=== PATIENT | female | born 1985 | race Caucasian/White ===

== ENCOUNTER 2021-03-09 20:20 | Emergency (ER) | payer MEDICAID, SELFPAY ==
[2021-03-09 20:38] VITALS: BP 128/80; PULSE 66; RESP 16; TEMP 36.7; O2SAT 99; BMI 24.7
--- NOTE | 2021-03-09 22:09 | ED_ITS ---
HPI - Chest Pain General: Chief Complaint: Chest Pain Stated Complaint: CP/LEFT SIDED NUMBNESS Time Seen by Provider: 03/09/21 21:54 History of Present Illness: HPI narrative: 35-year-old female comes in with chest pain. She had an episode 3 days ago and states she also passed out at that time. Her states she was out about 3 minutes. She states she had a similar episode tonight about 7 PM. She did feel somewhat short of breath. She states she had [id number] in her hands and legs. She states she felt fluttering in her chest. She denies any pain or burning with urination. No diarrhea or constipation. No ear pain, runny nose or sore throat. No cough. No nausea or vomiting. She states that she has had a murmur when she has been . She states that it was normal 5 years ago MD complaint: chest pain Onset (ago): hour(s) (This occurred at 7 PM.) Timing of current episode: episodic Prior episodes: Yes (3 days ago) Onset: during rest Pain location: substernal Pain radiation: none (She states she did feel [id number] in her arms and legs.) Severity: moderate Quality: other Relieving factors: rest Exacerbating factors: nothing Associated symptoms: Reports dyspnea (With the chest pain episodes.), palpitations ( Fluttering ) and syncope (3 days ago she states she did pass out with similar episode); Deny abdominal pain, diaphoresis, fever(s), nausea or vomiting Treatment prior to arrival: none Risk Factors: Coronary artery disease risk factors: none Review of Systems Const: Denies: fever(s), chills, body aches, change in appetite, change in weight, fatigue, malaise, night sweats, diaphoresis, change in sleep pattern, daytime sleepiness or snoring ENMT: Denies: throat pain, odynophagia, dry mouth, ear or mastoid pain, ear discharge, nasal discharge or nasal congestion Card: Reports: chest pain, palpitations ( Fluttering ) and syncope (3 days ago she states she did pass out with similar episode); Denies: edema, swelling of feet/ankles, dyspnea on exertion, orthopnea, leg pain with exertion or acrocyanosis Resp: Reports: dyspnea (With the chest pain episodes.); Denies: productive cough, non-productive cough, wheezing, stridor, pain on inspiration or chest congestion GI: Denies: abdominal pain, nausea or vomiting : Denies: flank pain, difficulty voiding or dysuria Musc: Denies: neck pain, back pain, extremity pain or extremity swelling Neuro: Reports: numbness in extremities (She states she did have [id number] in both her legs and arms with t); Denies: headache(s), weakness in extremities, lack of coordination, difficulty walking, frequent falls, dizziness, vertigo, confusion, behavioral changes, Slurred speech present, difficulty communicating thoughts, seizure-like activity or involuntary movements Psych: Denies: anxiety or depression Endo: Denies: polyuria, polydipsia or tired all the time Physical Exam Const: COMMON NORMALS: no acute distress, average body habitus, patient oriented x3, no limitations, healthy appearing, alert and well nourished EXAM LIMITATIONS: no altered mental status and no language barrier GENERAL APPEARANCE: cooperative, comfortable, well kempt and well developed; not in distress, not anxious, not combative and not lethargic NUTRITIONAL APPEARANCE: not cachectic and not obese ORIENTATION/CONSCIOUSNESS: Yes awake, Yes oriented to person, Yes oriented to place and Yes oriented to time; not confused, not patient obtunded and not lethargic HENMT: COMMON NORMALS: normocephalic, atraumatic, hearing grossly normal bilaterally and moist oral mucous membranes HEAD & SCALP: normal to inspection, normocephalic and atraumatic THROAT: posterior oropharynx normal and uvula midline Eye: COMMON NORMALS: Equal, round and reactive pupils present, EOMs intact bilaterally, conjunctivae normal, no scleral icterus and no papilledema GENERAL EYE: appearance normal, both eyes and all related structures and normal light reflex CONJUNCTIVA: Yes conjunctivae normal PUPIL: Yes Equal, round and reactive pupils present DIRECT OPHTHALMOSCOPY: Yes normal light reflex and Yes no papilledema Neck/C-Spine: COMMON NORMALS: full ROM, no lymphadenopathy, supple, no meningeal signs, no JVD and Thyroid normal GENERAL: Yes normal visual inspection, Yes trachea midline, No anterior neck swelling, No lymphadenopathy and No tender THYROID: Thyroid normal CERVICAL SPINE: Yes cervical ROM normal and Yes normal cervical lordosis Lymph: LYMPHATIC: no lymphadenopathy noted Resp: COMMON NORMALS: normal respiratory effort, No retractions, No use of accessory muscles and clear to auscultation bilaterally EFFORT & INSPECTION: Yes able to speak in complete sentences AUSCULTATION: clear to auscultation bilaterally Cardio: COMMON NORMALS: no JVD, regular rate and regular rhythm JUGULAR VENOUS DISTENTION: no JVD RATE: regular rate RHYTHM: regular rhythm GI: COMMON NORMALS: Normal to inspection, nondistended, normoactive bowel sounds present, Soft to palpation, non-tender, No hepatosplenomegaly present and no masses PALPATION: Yes Soft to palpation and Yes No hepatosplenomegaly present : COMMON NORMALS: Yes no CVA tenderness BLADDER/KIDNEY EXAM: Yes no CVA tenderness Back/Pelvis: COMMON NORMALS: no CVA tenderness Extremity: COMMON NORMALS: normal to inspection, full ROM, capillary refill normal, no joint enlargement, no clubbing, cyanosis or edema, no calf tenderness and no pedal edema GENERAL: Yes normal exam except as noted Neuro: COMMON NORMALS: patient oriented x3, CN's II-XII intact bilaterally, moves all extremities, no focal motor deficits and gait normal SENSORIUM/ORIENTATION: Yes alert, Yes oriented to person, Yes oriented to place, Yes oriented to time and No lethargic MENINGEAL SIGNS: Yes no meningeal signs Psych: COMMON NORMALS: mental status grossly normal, Normal thought process present, cooperative, normal affect and speech normal APPEARANCE: Yes grossly normal and Yes well kempt ATTITUDE: Yes calm and Yes engaged ACTIVITY/MOTOR BEHAVIOR: Yes appropriate eye contact SPEECH: Yes normal speech THOUGHT PROCESS: Normal thought process present Course Vital Signs: Vital signs: Vital Signs Temperature 98.1 F 03/09/21 20:38 Pulse Rate 75 03/10/21 00:36 Respiratory Rate 22 H 03/10/21 00:36 Blood Pressure 110/75 03/10/21 00:36 Pulse Oximetry 98 03/10/21 00:36 MDM - Chest Pain Lab Data: Labs: Lab Results 03/09/21 03/09/21 03/09/21 Range/Units 22:45 23:01 23:01 WBC 7.0 (4.0-10.0) 10^3/ uL RBC 4.12 (4.1-5.3) 10^6/u L Hgb 12.5 (11.5-15.3) g/dL Hct 38.1 (37.0-47.0) % MCV 92.5 (81-99) fL MCH 30.3 (28.0-34.0) pg MCHC 32.8 (30.0-36.0) g/dL RDW 13.4 (12.1-15.1) % Plt Count 353 (130-400) 10^3/c mm MPV 10.3 (7.4-10.4) fL Neut % (Auto) 46.2 % Lymph % (Auto) 43.0 % [place] % (Auto) 6.9 % Eos % (Auto) 2.9 % Baso % (Auto) 0.9 % Neut # (Auto) 3.21 (1.8-7.7) 10^3/u L Lymph # (Auto) 3.0 (0.8-4.8) 10^3/u L [place] # (Auto) 0.5 (0.2-0.9) 10^3/u L Eos # (Auto) 0.2 (0.0-0.8) 10^3/u L Baso # (Auto) 0.1 (0.0-0.1) 10^3/u L Nucleated RBC % (a uto) 0 % Nucleated RBCs # 0.0 /100WBC D-Dimer (0-0.59) ug/mIFE U Sodium (136-145) mmol/L Potassium (3.5-5.1) mmol/L Chloride (98-107) mmol/L Carbon Dioxide (22-29) mmol/L Anion Gap (5-19) BUN (6-20) mg/dL Creatinine (0.5-0.9) mg/dL GFR Calculation (90-130) mL/min Glucose (65-115) mg/dL Calculated Osmolal ity (285-295) mOsm/k g Calcium (8.5-10.5) mg/dL Total Bilirubin (0.15-1.2) mg/dL AST (0-32) U/L ALT (0-33) U/L Alkaline Phosphata se (35-105) IU/L Troponin T Baselin e (0-10) ng/L Total Protein (6.6-8.7) g/dL Albumin (3.5-5.2) g/dL Globulin (1.3-4.6) g/dL Urine Color Yellow (Yellow) Urine Appearance Clear (CLEAR) Urine pH 7 (5-7) Ur Specific Gravit y 1.010 (1.005-1.030) Urine Protein Neg (Negative) Urine Glucose (UA) Norm (Normal) Urine Ketones Negative (Negative) Urine Blood Trace H (Negative) Urine Nitrate Negative (Negative) Urine Bilirubin Neg (Negative) Urine Urobilinogen Norm (Negative) mg/dL Ur Leukocyte Billie ase Negative (Negative) Urine RBC 0-4 H (0-2) /hpf Urine WBC None (0-5) /hpf Ur Squamous Epith Cells None (0-5) /hpf Amorphous Sediment Not Reportable Urine Bacteria None (NONE) /hpf Urine Mucus N /hpf Urine Opiates Scre en Negative (Negative) ng/mL Ur Barbiturates Sc reen Negative (Negative) ng/mL Ur Phencyclidine S crn Negative (Negative) ng/mL Ur Amphetamines Sc reen Negative (Negative) ng/mL U Benzodiazepines Scrn Negative (Negative) ng/mL Urine Cocaine Scre en Negative (Negative) ng/mL U Marijuana (THC) Screen Negative (Negative) ng/mL 03/09/21 03/09/21 03/09/21 Range/Units 23:14 23:14 23:14 WBC (4.0-10.0) 10^3/ uL RBC (4.1-5.3) 10^6/u L Hgb (11.5-15.3) g/dL Hct (37.0-47.0) % MCV (81-99) fL MCH (28.0-34.0) pg MCHC (30.0-36.0) g/dL RDW (12.1-15.1) % Plt Count (130-400) 10^3/c mm MPV (7.4-10.4) fL Neut % (Auto) % Lymph % (Auto) % [place] % (Auto) % Eos % (Auto) % Baso % (Auto) % Neut # (Auto) (1.8-7.7) 10^3/u L Lymph # (Auto) (0.8-4.8) 10^3/u L [place] # (Auto) (0.2-0.9) 10^3/u L Eos # (Auto) (0.0-0.8) 10^3/u L Baso # (Auto) (0.0-0.1) 10^3/u L Nucleated RBC % (a uto) % Nucleated RBCs # /100WBC D-Dimer <= 0.27 (0-0.59) ug/mIFE U Sodium 140 (136-145) mmol/L Potassium 3.7 (3.5-5.1) mmol/L Chloride 105 (98-107) mmol/L Carbon Dioxide 25 (22-29) mmol/L Anion Gap 13.7 (5-19) BUN 12 (6-20) mg/dL Creatinine 0.6 (0.5-0.9) mg/dL GFR Calculation 112.5 (90-130) mL/min Glucose 83 (65-115) mg/dL Calculated Osmolal ity 289 (285-295) mOsm/k g Calcium 8.6 (8.5-10.5) mg/dL Total Bilirubin 0.2 (0.15-1.2) mg/dL AST 16 (0-32) U/L ALT 22 (0-33) U/L Alkaline Phosphata se 70 (35-105) IU/L Troponin T Baselin e 6 (0-10) ng/L Total Protein 7.0 (6.6-8.7) g/dL Albumin 4.1 (3.5-5.2) g/dL Globulin 2.9 (1.3-4.6) g/dL Urine Color (Yellow) Urine Appearance (CLEAR) Urine pH (5-7) Ur Specific Gravit y (1.005-1.030) Urine Protein (Negative) Urine Glucose (UA) (Normal) Urine Ketones (Negative) Urine Blood (Negative) Urine Nitrate (Negative) Urine Bilirubin (Negative) Urine Urobilinogen (Negative) mg/dL Ur Leukocyte Billie ase (Negative) Urine RBC (0-2) /hpf Urine WBC (0-5) /hpf Ur Squamous Epith Cells (0-5) /hpf Amorphous Sediment Urine Bacteria (NONE) /hpf Urine Mucus /hpf Urine Opiates Scre en (Negative) ng/mL Ur Barbiturates Sc reen (Negative) ng/mL Ur Phencyclidine S crn (Negative) ng/mL Ur Amphetamines Sc reen (Negative) ng/mL U Benzodiazepines Scrn (Negative) ng/mL Urine Cocaine Scre en (Negative) ng/mL U Marijuana (THC) Screen (Negative) ng/mL Discharge Plan Discharge Patient Disposition: Home Clinical Impression: Palpitations Syncope Qualifiers: Syncope type: unspecified Qualified Code(s): R55 - Syncope and collapse Condition: Stable Discharge Orders: Discharge ED (Routine); Ordered 03/10/21 Ordered By: Lucio Barrera Referrals: Reinier Puri MD [Primary Care Provider] - Discharge Diet: Advance as tolerated Discharge Activity: Resume usual activity Patient Instructions: Opioid Safety Activity Restrictions/Additional Instructions: Limit caffeine increase non caffeine/non alcoholic fluids Coding Level of Care Code ED Sanitation 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
--- NOTE | 2021-03-09 22:17 | ECG_ITS ---
[facility] Test Date: 2021-03-09 Pat Name: Otilia Mota Department: Room: Gender: Female Rn Eligibility: : 1985 Requested By: Lucio Barrera Order Number: [id number] Festus MD: Caty Bermudez M.D. Measurements Intervals [place] Rate: 67 P: 74 MD: 166 QRS: 47 QRSD: 85 T: 52 QT: 389 QTc: 413 Interpretive Statements SINUS RHYTHM No previous ECG available for comparison Electronically Signed On 03-11-2021 7:37:35 CDT by Caty Bermudez M.D. [id number]
--- NOTE | 2021-03-09 22:17 | XRR_ITS ---
PROCEDURE INFORMATION: Exam: XR Chest Exam date and time: 03/09/2021 10:20 PM Age: 35 years old Clinical indication: Type not specified; Patient HX: Chest pain, fainted, left sided numbness; Additional info: Cheat pain TECHNIQUE: Imaging protocol: XR of the chest. Views: 1 view. COMPARISON: No relevant prior studies available. FINDINGS: Lungs: Unremarkable. No consolidation. Pleural spaces: Unremarkable. No pleural effusion. No pneumothorax. Heart/Mediastinum: Unremarkable. No cardiomegaly. Bones/joints: Unremarkable. XR/XR chest 1V portable [id number] IMPRESSION: No acute findings.
[2021-03-09 22:58] LABS: Basophils # 0.1 10^3/uL (0.0-0.1); Basophils % 0.9 %; Eosinophils # 0.2 10^3/uL (0.0-0.8); Eosinophils % 2.9 %; Hematocrit 38.1 % (37.0-47.0); Hemoglobin 12.5 g/dL (11.5-15.3); Mean Corpuscular HGB Conc 32.8 g/dL (30.0-36.0); Mean Corpuscular Hemoglobin 30.3 pg (28.0-34.0); Mean Corpuscular Volume 92.5 fL (81-99); Mean Platelet Volume 10.3 fL (7.4-10.4); Monocytes # 0.5 10^3/uL (0.2-0.9); Monocytes % 6.9 %; Neutrophils # 3.21 10^3/uL (1.8-7.7); Neutrophils % 46.2 %; Nucleated Red Blood Cells % 0 %; Platelet Count 353 10^3/cmm (130-400); Red Blood Count 4.12 10^6/uL (4.1-5.3); Red Cell Distribution Width 13.4 % (12.1-15.1)
[2021-03-09 23:16] VITALS: BP 116/72; PULSE 69; RESP 16; O2SAT 99
[2021-03-09 23:33] LABS: D Dimer <= 0.27 ug/mIFEU (0-0.59)
[2021-03-09 23:36] LABS: Alanine Aminotransferase 22 U/L (0-33); Albumin Level 4.1 g/dL (3.5-5.2); Alkaline Phosphatase 70 IU/L (35-105); Anion Gap 13.7 (5-19); Aspartate Amino Transferase 16 U/L (0-32); Blood Urea Nitrogen 12 mg/dL (6-20); Calcium 8.6 mg/dL (8.5-10.5); Carbon Dioxide 25 mmol/L (22-29); Chloride 105 mmol/L (98-107); Globulin 2.9 g/dL (1.3-4.6); Glomerular Filtration Rate 112.5 mL/min (90-130); Glucose 83 mg/dL (65-115); Osmolality Calculated 289 mOsm/kg (285-295); Potassium 3.7 mmol/L (3.5-5.1); Sodium 140 mmol/L (136-145); Total Bilirubin 0.2 mg/dL (0.15-1.2)
[2021-03-09 23:37] LABS: Troponin(5th) Baseline 6 ng/L (0-10)
[2021-03-10] VITALS: BP 118/62; PULSE 63; RESP 18; O2SAT 99
[2021-03-10 00:06] LABS: Add Urine Microscopic? YES; Bilirubin Urine Neg (Negative); Blood Urine Trace (Negative); Glucose Urine UA Norm (Normal); Ketones Urine Negative (Negative); Leukocyte Esterase Urine Negative (Negative); Nitrate Urine Negative (Negative); Protein Urine Neg (Negative); Urine Appearance Clear (CLEAR); Urine Color Yellow (Yellow); Urobilinogen Urine Norm (Negative); pH Urine 7 (5-7)
[2021-03-10 00:08] LABS: Add Urine Culture? No; Mucus Urine N /hpf; RBC Urine 0-4 /hpf (0-2)
[2021-03-10 00:10] LABS: Amphetamines Screen Urine Negative (Negative); Barbiturates Screen Urine Negative (Negative); Benzodiazepines Screen Urine Negative (Negative); Cocaine Screen Urine Negative (Negative); Opiate Screen Urine Negative (Negative); PCP Screen Urine Negative (Negative); THC Screen Urine Negative (Negative)
[2021-03-10 00:36] VITALS: BP 110/75; PULSE 75; RESP 22; O2SAT 98
== END 2021-03-10 00:35 | disposition home or self-care (01) ==
PROVIDERS: Emergency Provider Emergency Medicine; PCP Family Medicine
DX: R00.2 Palpitations (principal); R55 Syncope and collapse
CPT/HCPCS: 71045; 80053; 80306; 81001; 81003; 84484; 85025; 85378; 93005; 99284

== ENCOUNTER 2021-08-20 12:06 | Emergency (ER) | payer BC, MEDICAID, SELFPAY ==
[2021-08-20 12:22] VITALS: BP 112/80; PULSE 80; RESP 16; TEMP 36.8; O2SAT 97; BMI 26.3
--- NOTE | 2021-08-20 13:23 | W.ED.NAVMDI ---
HPI - Nausea/Vomiting/Diarrhea General: Chief complaint: Nausea/Vomiting/Diarrhea Stated complaint: Vomiting, Lightheaded Time Seen by Provider: 08/20/21 12:56 History of Present Illness: HPI Narrative: 36-year-old female presents emergency room with nausea vomiting intermittently for the last 2 weeks. Patient is 11 weeks gestation she is G 11 P6 with 4 SABs. She is not been taking any vitamins. She is not denies any vaginal bleeding spotting or vaginal discharge. Denies any dysuria urgency or frequency. She has seen Dr. Puri in the past but is changing her care to Dr. Nagel due to Dr. Puri stopping his OB practice she has not established Dr. Nagel yet however. She is not taking any [id number] or MD elicited complaint: nausea and vomiting Onset (ago): week(s) Description of vomiting: food contents and watery Associated nausea: Yes Associated abdominal pain: No Severity: severe Exacerbating factors: none Relieving factors: none Associated symtoms: Reports anorexia and nausea; Denies altered mental status, anxiety, bloating, change in vision, chest pain, cough, diaphoresis, decreased urine output, dizziness, dysuria, epistaxis, fatigue, fecal incontinence, fevers/chills, headache(s), malaise, myalgias, numbness, palpitations, rash, short of breath, syncope, tenesmus, tinnitus or weakness Review of Systems Const: Denies: fever(s), chills, body aches, change in appetite, fatigue, malaise or diaphoresis Eyes: Denies: change in vision ENMT: Denies: throat pain, ear or mastoid pain, tinnitus, nasal discharge, nasal congestion or epistaxis Card: Denies: chest pain, palpitations, edema, syncope, dyspnea on exertion or orthopnea Resp: Denies: dyspnea, productive cough or non-productive cough GI: Reports: nausea; Denies: abdominal pain, vomiting, hematemesis, coffee ground emesis, diarrhea, constipation, bloating, fecal incontinence, hematochezia or melena : Denies: flank pain, difficulty voiding, dysuria, urinary frequency or urinary urgency Skin/Breast: Denies: rash or pruritus Neuro: Denies: headache(s) or dizziness Psych: Denies: anxiety Physical Exam Const: COMMON NORMALS: no acute distress EXAM LIMITATIONS: no altered mental status GENERAL APPEARANCE: cooperative and comfortable ORIENTATION/CONSCIOUSNESS: Yes awake, Yes oriented to person, Yes oriented to place and Yes oriented to time HENMT: COMMON NORMALS: normocephalic, atraumatic and hearing grossly normal bilaterally HEAD & SCALP: normocephalic and atraumatic Eye: COMMON NORMALS: Equal, round and reactive pupils present, EOMs intact bilaterally, conjunctivae normal and no scleral icterus CONJUNCTIVA: Yes conjunctivae normal PUPIL: Yes Equal, round and reactive pupils present Neck/C-Spine: COMMON NORMALS: full ROM, no lymphadenopathy, supple and no JVD Lymph: LYMPHATIC: no lymphadenopathy noted and no lymphedema noted Resp: COMMON NORMALS: normal respiratory effort, No retractions, No use of accessory muscles and clear to auscultation bilaterally AUSCULTATION: clear to auscultation bilaterally Cardio: COMMON NORMALS: no JVD, regular rate, regular rhythm and No murmurs present (Cardio) RATE: regular rate RHYTHM: regular rhythm GI: COMMON NORMALS: Soft to palpation and No hepatosplenomegaly present AUSCULTATION: Yes normoactive bowel sounds PALPATION: Yes Soft to palpation, No Tenderness to palpation present (GI), No Guarding due to palpation present (GI) and Yes No hepatosplenomegaly present Extremity: COMMON NORMALS: normal to inspection, capillary refill normal, no clubbing, cyanosis or edema, no calf tenderness and no pedal edema Neuro: SENSORIUM/ORIENTATION: Yes oriented to person, Yes oriented to place and Yes oriented to time Skin: COMMON NORMALS: no rashes or lesions noted GENERAL SKIN EXAM: no rashes or lesions noted Course Vital Signs: Vital signs: Vital Signs Temperature 98.2 F 08/20/21 12:22 Pulse Rate 67 08/20/21 15:44 Respiratory Rate 16 08/20/21 12:22 Blood Pressure 121/77 08/20/21 15:44 Pulse Oximetry 100 08/20/21 15:44 MDM - Nausea/Vomiting/Diarrhea MDM Narrative: Medical decision making narrative: Labs reviewed as found on the chart. Patient is feeling much better after the fluids. We will hold off on starting her on any vitamins instead we will start her on folic acid is a little late in the first trimester think there still may be some mild benefit. Recommend that she follow-up with her OB within the next week to review her symptoms we will start her on Phenergan another option if she is not getting better would be to clean just if she is significant worsening she can return 1, is look at that. Clear liquid diet for next 24 hours then advance as tolerated. Hold all blood pressure above until the nausea and vomiting are improved and she is checked in with her OB. Lab Data: Labs: Lab Results 08/20/21 08/20/21 08/20/21 13:49 13:49 15:27 WBC 7.0 10^3/uL 10^3/ uL (4.0-10.0) RBC 4.73 10^6/uL 10^6 /uL (4.1-5.3) Hgb 13.5 g/dL g/dL (11.5-15.3) Hct 41.9 % % (37.0-47.0) MCV 88.6 fl fl (81-99) MCH 28.5 pg pg (28.0-34.0) MCHC 32.2 g/dL g/dL (30.0-36.0) RDW 14.7 % % (12.1-15.1) Plt Count 386 10^3/cmm 10^3 /cmm (130-400) MPV 10.0 fL fL (7.4-10.4) Neut % (Auto) 74.9 % % Lymph % (Auto) 20.2 % % [place] % (Auto) 3.7 % % Eos % (Auto) 0.3 % % Baso % (Auto) 0.6 % % Neut # (Auto) 5.26 10^3/uL 10^3 /uL (1.8-7.7) Lymph # (Auto) 1.4 10^3/uL 10^3/ uL (0.8-4.8) [place] # (Auto) 0.3 10^3/uL 10^3/ uL (0.2-0.9) Eos # (Auto) 0.0 10^3/uL 10^3/ uL (0.0-0.8) Baso # (Auto) 0.0 10^3/uL 10^3/ uL (0.0-0.1) Nucleated RBC % (a uto) 0 % % Nucleated RBCs # 0.0 /100WBC /100W BC Sodium 133 mmol/L L mmol /L (136-145) Potassium 3.4 mmol/L L mmol /L (3.5-5.1) Chloride 97 mmol/L L mmol/ L (98-107) Carbon Dioxide 22 mmol/L mmol/L (22-29) Anion Gap 17.4 (5-19) BUN 9 mg/dL mg/dL (6-20) Creatinine 0.5 mg/dL mg/dL (0.5-0.9) GFR Calculation 138.1 mL/min H mL /min (90-130) Glucose 72 mg/dL mg/dL (65-115) Calculated Osmolal ity 273 mOsm/kg L mOs m/kg (285-295) Calcium 9.7 mg/dL mg/dL (8.5-10.5) Total Bilirubin 0.3 mg/dL mg/dL (0.15-1.2) AST 12 U/L U/L (0-32) ALT 9 U/L U/L (0-33) Alkaline Phosphata se 79 IU/L IU/L (35-105) Creatine Kinase 36 U/L U/L (26-192) Total Protein 8.0 g/dL g/dL (6.6-8.7) Albumin 4.2 g/dL g/dL (3.5-5.2) Globulin 3.8 g/dL g/dL (1.3-4.6) Lipase 29 U/L U/L (13-60) Urine Color Yellow (Yellow) Urine Appearance Clear (CLEAR) Urine pH 5 (5-7) Ur Specific Gravit y 1.020 (1.005-1.030) Urine Protein Neg (Negative) Urine Glucose (UA) Norm (Normal) Urine Ketones 3+ H (Negative) Urine Blood 2+ H (Negative) Urine Nitrate Negative (Negative) Urine Bilirubin Neg (Negative) Urine Urobilinogen Norm mg/dL mg/dL (Negative) Ur Leukocyte Billie ase Negative (Negative) Amorphous Sediment Not Reportable Discharge Plan Discharge Patient Disposition: Home Clinical Impression: Hyperemesis gravidarum Condition: Stable Prescriptions: New promethazine 25 mg tablet 25 mg PO Q6H PRN (Reason: nausea and vomiting) Qty: 20 RF: 0 No Action Tylenol Ex Str Rapid Release 500 mg Tablet 1,000 mg PO Q4H PRN (Reason: Pain) RF: 0 Discharge Orders: Discharge ED (Routine); Ordered 08/20/21 Ordered By: Miguelito Jaramillo Referrals: Sonu Nagel MD [Primary Care Provider] - Discharge Diet: Clear Liquid Discharge Activity: Increase activity as tolerated Patient Instructions: Opioid Safety Activity Restrictions/Additional Instructions: Follow-up with your OB doctor within the next week. Return to emergency room for further problems. Coding Level of Care Code ED Supervisor [place] for Chg Fwd Exam Comprehensive
--- NOTE | 2021-08-20 13:28 | PC.PHAR ---
pt states she had a rx for zofran 4mg odt filled on 08/04/21 5d/s pt states she ran out of zofran 3 days ago
[2021-08-20] MEDS: sodium chloride 0.9% 1,000 ML 999 ML IV (13:33)
[2021-08-20] MEDS: promethazine 25 mg/mL SDV 1 mL IM (13:44)
[2021-08-20 13:59] LABS: Basophils % 0.6 %; Eosinophils % 0.3 %; Hematocrit 41.9 % (37.0-47.0); Hemoglobin 13.5 g/dL (11.5-15.3); Lymphocytes # 1.4 10^3/uL (0.8-4.8); Lymphocytes % 20.2 %; Mean Corpuscular HGB Conc 32.2 g/dL (30.0-36.0); Mean Corpuscular Hemoglobin 28.5 pg (28.0-34.0); Mean Corpuscular Volume 88.6 fl (81-99); Monocytes # 0.3 10^3/uL (0.2-0.9); Monocytes % 3.7 %; Neutrophils # 5.26 10^3/uL (1.8-7.7); Neutrophils % 74.9 %; Nucleated Red Blood Cells % 0 %; Platelet Count 386 10^3/cmm (130-400); Red Blood Count 4.73 10^6/uL (4.1-5.3); Red Cell Distribution Width 14.7 % (12.1-15.1)
[2021-08-20 14:40] VITALS: BP 110/66; PULSE 66; O2SAT 100
[2021-08-20 15:34] LABS: Alanine Aminotransferase 9 U/L (0-33); Albumin Level 4.2 g/dL (3.5-5.2); Alkaline Phosphatase 79 IU/L (35-105); Anion Gap 17.4 (5-19); Aspartate Amino Transferase 12 U/L (0-32); Blood Urea Nitrogen 9 mg/dL (6-20); Calcium 9.7 mg/dL (8.5-10.5); Carbon Dioxide 22 mmol/L (22-29); Chloride 97 mmol/L (98-107); Creatine Phosphokinase 36 U/L (26-192); Globulin 3.8 g/dL (1.3-4.6); Glomerular Filtration Rate 138.1 mL/min (90-130); Glucose 72 mg/dL (65-115); Lipase 29 U/L (13-60); Osmolality Calculated 273 mOsm/kg (285-295); Potassium 3.4 mmol/L (3.5-5.1); Sodium 133 mmol/L (136-145); Total Bilirubin 0.3 mg/dL (0.15-1.2)
[2021-08-20 15:44] VITALS: BP 121/77; PULSE 67; O2SAT 100
[2021-08-20 15:50] LABS: Add Urine Microscopic? YES; Bilirubin Urine Neg (Negative); Blood Urine 2+ (Negative); Glucose Urine UA Norm (Normal); Ketones Urine 3+ (Negative); Leukocyte Esterase Urine Negative (Negative); Nitrate Urine Negative (Negative); Protein Urine Neg (Negative); Urine Appearance Clear (CLEAR); Urine Color Yellow (Yellow); Urobilinogen Urine Norm (Negative); pH Urine 5 (5-7)
[2021-08-20 16:08] VITALS: BP 121/77; PULSE 86; O2SAT 98
[2021-08-20 16:16] LABS: Add Urine Culture? No; Bacteria Urine TRACE /hpf; Mucus Urine 3+ /hpf; RBC Urine 0-4 /hpf (0-2); Squamous Epithelial Cell Urine 0-4 /hpf (0-5)
== END 2021-08-20 16:12 | disposition home or self-care (01) ==
PROVIDERS: Emergency Provider Family Medicine; PCP Family Medicine
DX: O21.0 Mild hyperemesis gravidarum (principal); Z3A.11 11 weeks gestation of pregnancy
CPT/HCPCS: 80053; 81001; 82550; 83690; 85025; 96360; 96372; 99283; J2550; J7030

== ENCOUNTER 2022-02-10 00:29 | Outpatient (CLI) | payer BC, MEDICAID, SELFPAY ==
[2022-02-10] VITALS (13 sets, daily range): BP systolic 107–112; BP diastolic 56–60; PULSE 89–101; RESP 16–20; TEMP 36.3–36.4; O2SAT 94–96; BMI 32.1
--- NOTE | 2022-02-10 06:39 | PC.NURSE ---
FHTs FROM [id number] DOCUMENTED IN [employer] UNDER INCORRECT PATIENT. BASELINE: 145 VARIABILITY: MODERATE ACCELERATIONS: 15x15 DECELERATION: NONE CONTRACTIONS: NONE
== END 2022-02-10 01:35 | disposition home or self-care (01) ==
LOC: OPOB 00:30 → OBGYN 00:31
PROVIDERS: PCP Family Medicine; Visit Provider Family Medicine
DX: O26.899 Other specified pregnancy related conditions, unspecified trimester (principal); Z3A.00 Weeks of gestation of pregnancy not specified; R06.02 Shortness of breath; H92.09 Otalgia, unspecified ear; R51.9 Headache, unspecified
CPT/HCPCS: 59025; 99211

== ENCOUNTER 2022-02-10 01:39 | Emergency (ER) | payer BC, MEDICAID, SELFPAY ==
[2022-02-10 01:45] VITALS: BP 124/77; PULSE 95; RESP 18; TEMP 36.8; O2SAT 97; BMI 31.8
--- NOTE | 2022-02-10 01:53 | ED_ITS ---
HPI - SOB/Dyspnea General: Chief Complaint: Shortness of Breath/Dyspnea Stated Complaint: SOB\Headache\Cough\Chest Pain Time Seen by Provider: 02/10/22 01:52 History of Present Illness: HPI Narrative: Ms. Mota is a 36-year-old lady without significant past medical history who is currently approximately 36 weeks who presents to the emergency department from OB for respiratory symptoms. She was evaluated in OB prior to being referred to the emergency department and has no obstetric complaints. Reported heart rate normal. She endorses 3 to 4 days of gradual onset initially mild upper respiratory symptoms however they have become more pron ounced today and are moderate in intensity. She endorses cough with occasional coughing up dark-colored or even red sputum, she has had upper respiratory symptoms including nosebleeds and bloody sinus drainage. She reports generalized malaise, some shortness of breath, and congestion. She tried Tylenol at home with only mild relief. She has not had fevers. Overall the course of symptoms has worsened. She has had sick contacts. No other specific changes in health, exacerbating, or alleviating factors identified. Pertinent past history: other Onset (ago): day(s) Timing: progressively worsening Severity: moderate Review of Systems General: Reports: 10 or more systems reviewed and unremarkable except in HPI and below PFSH ED PFSH: Medical History (Updated 02/10/22 @ 04:50 by Kenny Gill MD) No significant past medical history Surgical History (Updated 02/10/22 @ 02:17 by Kenny Gill MD) No significant past surgical history Family History (Updated 02/10/22 @ 02:17 by Kenny Gill MD) Denies family history of Clotting disorder Bleeding disorder Physical Exam Const: COMMON NORMALS: alert GENERAL APPEARANCE: cooperative, well developed and ill appearing (Mildly) HENMT: COMMON NORMALS: normocephalic and atraumatic HEAD & SCALP: normocephalic and atraumatic THROAT: posterior oropharynx normal Eye: COMMON NORMALS: conjunctivae normal CONJUNCTIVA: Yes conjunctivae normal SCLERA: sclerae normal Neck/C-Spine: COMMON NORMALS: supple GENERAL: Yes trachea midline Resp: EFFORT & INSPECTION: Yes able to speak in complete sentences AUSCULTATION: rhonchi lower bilaterally Cardio: COMMON NORMALS: regular rate and regular rhythm RATE: regular rate RHYTHM: regular rhythm GI: COMMON NORMALS: Soft to palpation PALPATION: Yes Soft to palpation and No Tenderness to palpation present (GI) OTHER: Gravid Extremity: GENERAL: Yes normal exam except as noted and No edema Neuro: COMMON NORMALS: moves all extremities SENSORIUM/ORIENTATION: Yes alert and No Orientation impaired Psych: COMMON NORMALS: mental status grossly normal and Normal thought process present THOUGHT PROCESS: Normal thought process present Course ED course: - Patient was seen and evaluated by me at bedside - Patient placed on cardiac monitors, IV access obtained - Initial evaluation notable for exam as above - Labs and xrays personally interpreted by me [- Fluids given] - Labs notable for flu a positive - Imaging notable for questionable bibasilar infiltrates versus respiratory effort - Upon serial reexamination after treatment the patient was improved - Based on patient history, evaluation, labs, and imaging as interpreted the most likely cause of the patient's condition is flu A. Additionally, given photographs of the drainage that the patient is not sneezing/coughing I am also concerned about sinusitis. - The results of ED evaluation were discussed with the patient including prescriptions (and specific side effects of Tamiflu) and/or symptomatic cares (if applicable) including appropriate and responsible use, followup plan, and return precautions. The patient verbalized understanding and felt safe for discharge. - Patient discharged in satisfactory condition. Note: Click bubbles or prepopulated enriquez in note writing are used for assistance with data collection and billing and are inherently more limited than narrative and other text portions of this note. Please use narrative for additional clinical history and defer to narrative/free test for any case of contradictory information. If information appears in only free text or click bubble it should be considered present or absent as reported. Please contact note technical document writer for clarifications of clinical information or contradictory information. MDM is a brief summary, contradictory or erroneous seeming information should be clarified and full note should be reviewed. Vital Signs: Vital signs: Vital Signs Temperature 98.2 F 02/10/22 01:45 Pulse Rate 95 02/10/22 01:45 Respiratory Rate 18 02/10/22 01:45 Blood Pressure 124/77 02/10/22 01:45 Pulse Oximetry 97 02/10/22 01:45 MDM - SOB/Dyspnea Medical Decision Making 36-year-old lady currently 36 weeks presenting shortness of breath and bloody/purulent nasal drainage. Patient found to be flu positive which likely explains symptoms. Given drainage I also concerned about bacterial sinusitis. Given current gravid state will plan to treat with antibiotics and Tamiflu. Satisfactory for outpatient follow-up with strict return precautions. Medical Records I reviewed the patient's medical records. Lab Data I reviewed the patient's lab results. Labs/Radiology: Radiology Impressions Chest X-Ray 02/10/22 02:08 IMPRESSION: 1. Bilateral low lung volumes and crowding of the vascular markings. 2. A retrocardiac opacity that may be secondary to atelectasis or in the appropriate clinical setting, pneumonia. Laboratory Results Nasal Influ A H1 2009 PCR Not detected (NOT DETECT) 02/10/22 04:32 Coronavirus 229E (PCR) Not detected (NOT DETECT) 02/10/22 02:33 Influenza A (H1) PCR Not detected (NOT DETECT) 02/10/22 04:32 Influenza A (H3) PCR Detected (NOT DETECT) A 02/10/22 04:32 Influenza Type A (PCR) Detected (NOT DETECT) A 02/10/22 04:32 Influenza Type B (PCR) Not detected (NOT DETECT) 02/10/22 04:32 SARS-CoV-2 (PCR) Not detected (NOT DETECT) 02/10/22 02:33 Group A Strep Rapid Negative (Negative) 02/10/22 02:33 EKG Data EKG 1: I personally reviewed and interpreted this EKG as follows: EKG Interpretation Date: 02/10/22 EKG interpretation time: 02:35 Interpretation: Twelve-lead EKG shows a regular rhythm at a rate of 92. MS interval 157, QRS duration 89, QTc 424. Normal axis. Interpretation: Sinus rhythm. Discharge Plan Discharge Patient Disposition: Home Clinical Impression: Influenza A, Bacterial sinusitis Condition: Stable Prescriptions: New Tamiflu 75 mg capsule 75 mg PO BID 5 Days Qty: 10 0RF Augmentin 875-125 mg tablet 1 tab PO BID 5 Days Qty: 10 0RF No Action Tylenol Ex Str Rapid Release 500 mg Tablet 1,000 mg PO Q4H PRN (Reason: Pain) 0RF promethazine 25 mg tablet 25 mg PO Q6H PRN (Reason: nausea and vomiting) Qty: 20 0RF Discharge Orders: Discharge ED (Routine); Ordered 02/10/22 Ordered By: Kenny Gill Referrals: Sonu Nagel MD [Primary Care Provider] - Discharge Diet: Usual diet Discharge Activity: Increase activity as tolerated Patient Instructions: Influenza (ED), Rhinosinusitis (ED) Activity Restrictions/Additional Instructions: Thank you for visiting the emergency department. You were seen and evaluated for upper respiratory symptoms as well as shortness of breath cough. You were found to be positive for influenza A and based on your description of symptoms I also believe that you have bacterial sinusitis. The influenza will be treated with antiviral medication and the sinusitis will be treated with antibiotics. I have include generalized patient instructions however these may not be applicable given your current . Do not use NSAIDs (such as ibuprofen, Aleve, naproxen) for symptoms. Please follow-up instructions previously given by your obstetric team. Please follow-up with your primary care provider and obstetric team. Please return to the emergency department for worsening symptoms or anything else that you are concerned about and feel needs emergency department evaluation. Coding Level of Care Code ED Lead Rider for Aydeng Fwd Exam Comprehensive
--- NOTE | 2022-02-10 01:57 | PC.NURSE ---
patient received with c/o cough, sore throat, chest discomfort worse with cough. reports 36 weeks with 7th child. states yellow/brown phlegm production. speech clear, respirations even equal adn unlabored but feels heavy in chest.
--- NOTE | 2022-02-10 02:08 | XRR_ITS ---
PROCEDURE INFORMATION: Exam: XR Chest Exam date and time: 02/10/2022 2:08 AM Age: 36 years old Clinical indication: Shortness of breath; Patient HX: C/O SOB TECHNIQUE: Imaging protocol: XR of the chest. Views: 1 view. COMPARISON: CR XR chest 1V portable [id number] 03/09/2021 10:17 PM FINDINGS: Lungs: There are bilateral low lung volumes. There is a retrocardiac opacity that is concerning for atelectasis or pneumonia. Pleural spaces: No pleural effusion or pneumothorax. Heart/Mediastinum: Normal in size. Bones/joints: No acute fracture is identified. XR/XR chest 1V portable [id number] IMPRESSION: 1. Bilateral low lung volumes and crowding of the vascular markings. 2. A retrocardiac opacity that may be secondary to atelectasis or in the appropriate clinical setting, pneumonia.
--- NOTE | 2022-02-10 02:08 | ECG_ITS ---
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 Measurements Intervals [place] Rate: 92 P: 48 KS: 157 QRS: 16 QRSD: 89 T: 34 QT: 374 QTc: 464 Interpretive Statements SINUS RHYTHM Compared to ECG 03/09/2021 23:10:20 No significant changes Electronically Signed On 02-10-2022 18:54:19 CDT by Rg Bird M.D. [id number]
[2022-02-10] MEDS: sodium chloride 0.9% 1,000 ML 999 ML IV (02:51)
[2022-02-10 02:55] LABS: Rapid Strep A Test Negative (Negative)
[2022-02-10 04:29] LABS: Adenovirus Not Detected (NOT DETECT); Chlamydia Pneumoniae Not Detected (NOT DETECT); Coronavirus 229E,HKU1,NL63,OC4 Not Detected (NOT DETECT); Human Metapneumovirus Not Detected (NOT DETECT); Human Rhinovirus/Enterovirus Not Detected (NOT DETECT); Influenza A Detected (NOT DETECT); Influenza A H1 Not Detected (NOT DETECT); Influenza A H1-2009 Not Detected (NOT DETECT); Influenza A H3 Detected (NOT DETECT); Influenza B Not Detected (NOT DETECT); Mycoplasma Pneumoniae Not Detected (NOT DETECT); Parainfluenza Virus Type 1 Not Detected (NOT DETECT); Parainfluenza Virus Type 2 Not Detected (NOT DETECT); Parainfluenza Virus Type 3 Not Detected (NOT DETECT); Parainfluenza Virus Type 4 Not Detected (NOT DETECT); Respiratory Syncytial Virus A Not Detected (NOT DETECT); Respiratory Syncytial Virus B Not Detected (NOT DETECT); SARS-COV-2 Not Detected (NOT DETECT)
[2022-02-10 04:32] LABS: Influenza A Detected (NOT DETECT); Influenza A H1 Not Detected (NOT DETECT); Influenza A H1-2009 Not Detected (NOT DETECT); Influenza A H3 Detected (NOT DETECT); Influenza B Not Detected (NOT DETECT); Results from Genmark
== END 2022-02-10 04:56 | disposition home or self-care (01) ==
PROVIDERS: Emergency Provider Emergency Medicine; PCP Family Medicine
DX: O26.893 Other specified pregnancy related conditions, third trimester (principal); J10.1 Influenza due to other identified influenza virus with other respiratory manifestations; J01.80 Other acute sinusitis; Z3A.36 36 weeks gestation of pregnancy; Z20.822 Contact with and (suspected) exposure to COVID-19
CPT/HCPCS: 71045; 87081; 87631; 87635; 87880; 93005; 96360; 99283; J7030

== ENCOUNTER 2022-03-05 09:40 | Outpatient (CLI) | payer BC, MEDICAID, SELFPAY ==
[2022-03-05] VITALS (10 sets, daily range): BP systolic 99–117; BP diastolic 53–61; PULSE 72–84; RESP 16; BMI 32.1
[2022-03-05] MEDS: HYDROcodone-acetaminophen 5-325 mg Tablet 1 TAB PO (11:05)
== END 2022-03-05 12:06 | disposition home or self-care (01) ==
LOC: OPOB 09:45 → OBGYN 09:50
PROVIDERS: PCP Family Medicine; Visit Provider Family Medicine
DX: O26.899 Other specified pregnancy related conditions, unspecified trimester (principal); Z3A.00 Weeks of gestation of pregnancy not specified; M25.552 Pain in left hip
CPT/HCPCS: 59025; 99211

== ENCOUNTER 2022-03-08 03:54 | Outpatient (CLI) | payer BC, MEDICAID, SELFPAY ==
[2022-03-08 03:55] VITALS: BMI 32.1
[2022-03-08 04:00] VITALS: BP 121/63; PULSE 80; TEMP 36
[2022-03-08 06:07] VITALS: BP 122/60; PULSE 76; TEMP 36.2
== END 2022-03-08 06:18 | disposition home or self-care (01) ==
LOC: OPOB 03:55 → OBGYN 03:56
PROVIDERS: PCP Family Medicine; Visit Provider Family Medicine
DX: O26.899 Other specified pregnancy related conditions, unspecified trimester (principal); Z3A.00 Weeks of gestation of pregnancy not specified; R10.9 Unspecified abdominal pain
CPT/HCPCS: 59025; 99211

== ENCOUNTER 2022-03-09 08:00 | Inpatient (IN) | payer BC, MEDICAID, SELFPAY ==
[2022-03-09] VITALS (28 sets, daily range): BP systolic 107–130; BP diastolic 53–81; PULSE 69–96; RESP 16–18; TEMP 36–36.8; O2SAT 98; BMI 32.1
[2022-03-09 09:03] LABS: Nitrazine Paper, PH Positive
[2022-03-09 09:08] LABS: Basophils % 0.3 %; Eosinophils # 0.1 10^3/uL (0.0-0.8); Hematocrit 35.4 % (37.0-47.0); Hemoglobin 11.9 g/dL (11.5-15.3); Lymphocytes # 1.9 10^3/uL (0.8-4.8); Lymphocytes % 22.1 %; Mean Corpuscular HGB Conc 33.6 g/dL (30.0-36.0); Mean Corpuscular Hemoglobin 33.2 pg (28.0-34.0); Mean Corpuscular Volume 98.9 fl (81-99); Mean Platelet Volume 10.5 fL (7.4-10.4); Monocytes # 0.6 10^3/uL (0.2-0.9); Monocytes % 6.3 %; Neutrophils # 6.02 10^3/uL (1.8-7.7); Neutrophils % 69.3 %; Nucleated Red Blood Cells % 0 %; Platelet Count 231 10^3/cmm (130-400); Red Blood Count 3.58 10^6/uL (4.1-5.3); Red Cell Distribution Width 14.6 % (12.1-15.1); White Blood Count 8.7 10^3/uL (4.0-10.0)
[2022-03-09] MEDS: dextrose 5%-lactated ringers 1,000 ML 125 ML IV (09:20)
[2022-03-09] MEDS: fentaNYL 50 mcg/mL INJ 2mL IVP ×3 (10:22→12:52)
[2022-03-09] MEDS: oxytocin 30 UNIT/500 ML BAG 600 UNIT IV (13:29)
--- NOTE | 2022-03-09 13:41 | PM.OPHPUD ---
Labor & Delivery H&P Update Date of Procedure: March 09, 2022 Date H&P Performed: 03/04/22 Admission Diagnosis: 38-week 11 para 6 female presenting with spontaneous rupture membranes Planned procedure: Spontaneous vaginal delivery Other information: The patient presented to the hospital this morning after having her membranes ruptured just prior to presentation to the hospital. She has had an unremarkable . Her blood type was A-. Her GBS status was negative. The remainder of her labs are within normal limits.
--- NOTE | 2022-03-09 13:44 | PM.DELIVERY ---
Delivery Note: Date of delivery: March 09, 2022 Pre-delivery diagnoses: 1. 36-year-old 11 para 6 presenting at 38 weeks estimated gestational age with spontaneous rupture of membranes Post-delivery diagnoses: Status post spontaneous rupture of membranes Procedure: Spontaneous vaginal delivery Delivering Physician: Sonu Nagel Estimated blood loss (mL): 100 Pre-Delivery Course: The patient to the hospital with spontaneous rupture of membranes. She gradually progressed to complete without difficulty. She did have 2 doses of fentanyl. She did not receive an epidural. Delivery: DELIVERY: The patient progressed to complete without difficulty. She delivered a male with a weight of 8 pounds 15 ounces with Apgars of 8, 9. The baby was delivered from the BRADLY position. The baby's mouth and nose were suctioned at the site of the perineum. The baby was then completely delivered and placed on the mother's abdomen. The cord was then clamped and cut. There was a nuchal cord x1 which was easily reduced at the perineum There was no meconium. The placenta and 3 vessel cord were delivered intact shortly thereafter. The perineum and vaginal vault were carefully examined. Bilateral vaginal wall abrasions were noted which did not require repair. Both the mother and the baby were in stable condition. Post-Delivery Status: Good A&P Assessment and plan (1) 38 weeks gestation of : Status: Acute (2) Spontaneous rupture of membranes: I anticipate routine care. Status: Acute (3) Spontaneous vaginal delivery: Status: Acute Coding Level of Care Code Acute Power Generation Plant Operator for Chg Fwd Diagnoses 38 weeks gestation of Z3A.38 Spontaneous rupture of membranes Spontaneous vaginal delivery O80
[2022-03-09] MEDS: benzocaine-menthol 78 gm Canister 1 SPRAY TOPICAL (16:00)
[2022-03-09] MEDS: lanolin oint 7 gm 1 APPLIC TOPICAL (16:01)
[2022-03-09] MEDS: acetaminophen 500 mg Tablet 1000 MG PO (17:35)
[2022-03-10 03:29] LABS: Hematocrit 33.2 % (37.0-47.0); Hemoglobin 11.1 g/dL (11.5-15.3); Mean Corpuscular HGB Conc 33.4 g/dL (30.0-36.0); Mean Corpuscular Volume 98.8 fl (81-99); Mean Platelet Volume 10.8 fL (7.4-10.4); Platelet Count 208 10^3/cmm (130-400); Red Blood Count 3.36 10^6/uL (4.1-5.3); Red Cell Distribution Width 14.6 % (12.1-15.1); White Blood Count 11.9 10^3/uL (4.0-10.0)
[2022-03-10 04:27] VITALS: BP 112/73; PULSE 79; RESP 16; TEMP 36.6
--- NOTE | 2022-03-10 06:53 | PM.OBGYDC ---
Discharge Providers ACUTE CARE NURSE PRACTITIONER Date of Admission: 03/09/22 08:00 Date of Discharge: 03/24/22 Attending Provider at Admission: Sonu Nagel MD Attending Provider at Discharge: Sonu Nagel MD Primary Care Provider: Sonu Nagel MD Diagnoses at Discharge Discharge Diagnosis (1) 38 weeks gestation of : Status: Resolved (2) Spontaneous rupture of membranes: Status: Resolved (3) Spontaneous vaginal delivery: Status: Resolved Reason for Visit Reason for Visit: Poss ROM Hospital Course Hospital Course Patient presented to the hospital with spontaneous rupture of membranes. She progressed to complete without difficulty. She had a delivery of a healthy infant without difficulty. There were no complications. Her course was also unremarkable. Her bleeding was within normal limits. Her pain was well controlled. She ambulated without difficulty. Information Peripartum Data: Infant Delivery Method: Vaginal Physical Exam Narrative: The patient is alert. She appears comfortable. Her heart has a regular rate and rhythm with no murmurs appreciated. Lungs are clear to auscultation bilaterally. Her fundus is firm and at the umbilicus. Discharge Data Studies Completed and Pending Pending at discharge Category Date Time Status Complete Crossmatch Routine Lab 03/09/22 08:25 Results Rho D Immune Globulin Routine Lab 03/09/22 08:25 Results Type and Screen Routine Lab 03/09/22 08:25 Results Laboratory Results WBC 11.9 10^3/uL (4.0-10.0) H 03/10/22 02:11 RBC 3.36 10^6/uL (4.1-5.3) L 03/10/22 02:11 Hgb 11.1 g/dL (11.5-15.3) L 03/10/22 02:11 Hct 33.2 % (37.0-47.0) L 03/10/22 02:11 MCV 98.8 fl (81-99) 03/10/22 02:11 MCH 33.0 pg (28.0-34.0) 03/10/22 02:11 MCHC 33.4 g/dL (30.0-36.0) 03/10/22 02:11 RDW 14.6 % (12.1-15.1) 03/10/22 02:11 Plt Count 208 10^3/cmm (130-400) 03/10/22 02:11 MPV 10.8 fL (7.4-10.4) H 03/10/22 02:11 Neut % (Auto) 69.3 % 03/09/22 08:25 Lymph % (Auto) 22.1 % 03/09/22 08:25 [place] % (Auto) 6.3 % 03/09/22 08:25 Eos % (Auto) 1.0 % 03/09/22 08:25 Baso % (Auto) 0.3 % 03/09/22 08:25 Neut # (Auto) 6.02 10^3/uL (1.8-7.7) 03/09/22 08:25 Lymph # (Auto) 1.9 10^3/uL (0.8-4.8) 03/09/22 08:25 [place] # (Auto) 0.6 10^3/uL (0.2-0.9) 03/09/22 08:25 Eos # (Auto) 0.1 10^3/uL (0.0-0.8) 03/09/22 08:25 Baso # (Auto) 0.0 10^3/uL (0.0-0.1) 03/09/22 08:25 Nucleated RBC % (auto) 0 % 03/09/22 08:25 Nucleated RBCs # 0.0 /100WBC 03/09/22 08:25 Blood Type A Negative 03/09/22 08:25 Rho(D) Type Negative 03/09/22 08:25 Antibody Screen Negative 03/09/22 08:25 Screen Negative (Negative) 03/09/22 02:11 Vitals Last Vital Signs Temp 97.9 F 03/10/22 04:27 Pulse 79 03/10/22 04:27 Resp 16 03/10/22 04:27 BP 112/73 03/10/22 04:27 Pulse Ox 98 03/09/22 16:00 Discharge Plan Discharge Patient Disposition: Home Condition: Stable Prescriptions: New ibuprofen 800 mg Tablet 800 mg PO TID Qty: 45 0RF Continued acetaminophen 500 mg Tablet 1,000 mg PO Q4H PRN (Reason: Pain) 0RF Iron (ferrous sulfate) 1 tab PO DAILY 0RF prenat.vits,merritt,tfx-saoa-ewypj 1 tab PO DAILY 0RF Discharge Orders: Discharge Order (Routine); Ordered 03/10/22 Ordered By: Sonu Nagel Referrals: Sonu Nagel MD [Primary Care Provider] - 04/21/22 9:45 am Discharge Diet: Usual diet Discharge Activity: Limit activity as instructed Patient Instructions: Expression, Collection and Storage of Breast Milk (DC), Bleeding (DC), Preeclampsia and Eclampsia After Delivery (GEN), OB Discharge Report, OB Food/Drug Interaction Guide, Opioid Safety, OB Home Care, OB Vaginal Deliveries Discharge Attestations ACUTE CARE NURSE PRACTITIONER Time Spent in Discharge Care*: less than 30 min Coding Level of Care Code Acute Personal Security Specialist for Chg Fwd Diagnoses 38 weeks gestation of Z3A.38 Spontaneous rupture of membranes Spontaneous vaginal delivery O80
[2022-03-10 09:58] VITALS: BP 114/69; PULSE 74; RESP 16; TEMP 36.7; O2SAT 96
[2022-03-10 15:19] VITALS: BP 117/77; PULSE 69; RESP 18; TEMP 36.6; O2SAT 99
== END 2022-03-10 15:40 | disposition home or self-care (01) | DRG 807 ==
PROVIDERS: Admitting Provider Family Medicine; PCP Family Medicine; Visit Provider Family Medicine
DX: O42.02 Full-term premature rupture of membranes, onset of labor within 24 hours of rupture (principal); Z37.0 Single live birth; O69.81X0 Labor and delivery complicated by cord around neck, without compression, not applicable or unspecified; Z3A.38 38 weeks gestation of pregnancy
CPT/HCPCS: 12345; 36415; 59025; 59409; 83986; 85025; 85027; 85460; 86850; 86900; 90384; 99211; J3010

== ENCOUNTER 2025-06-11 09:37 | Oncology outpatient (recurring) (ONCR) | payer BC, MEDICAID, SELFPAY ==
[2025-06-11 09:59] VITALS: BP 118/72; PULSE 111; RESP 16; TEMP 36.8; O2SAT 98
== END 2025-06-27 23:59 | disposition home or self-care (01) ==
PROVIDERS: PCP Family Medicine; Visit Provider Family Medicine
DX: O26.899 Other specified pregnancy related conditions, unspecified trimester (principal)
CPT/HCPCS: 96372; J2790

== ENCOUNTER 2025-08-06 07:34 | Inpatient (IN) | payer BC, MEDICAID, SELFPAY ==
[2025-08-05 23:40] VITALS: BMI 33.0
[2025-08-05 23:54] VITALS: BP 132/70; PULSE 82
[2025-08-06] VITALS (39 sets, daily range): BP systolic 110–139; BP diastolic 54–85; PULSE 65–106; RESP 15–18; TEMP 36.3–36.6; O2SAT 95–97
[2025-08-06 04:16] LABS: Hematocrit 32.9 % (36-47); Hemoglobin 9.80 g/dL (11.27-16.99); Mean Corpuscular HGB Conc 29.8 g/dL (30-55); Mean Corpuscular Hemoglobin 24.5 pg (27-33); Mean Corpuscular Volume 82.3 fl (85-98); Nucleated Red Blood Cells % 0 %; Platelet Count 319 10^3/cmm (157-399); Red Blood Count 4.00 10^6/uL (3.85-5.65); White Blood Count 11.04 10^3/uL (3.29-11.43)
--- NOTE | 2025-08-06 08:19 | PM.OPHPUD ---
Labor & Delivery H&P Update Date of Procedure: August 06, 2025 Date H&P Performed: 08/01/25 Changes to previous documentation: The patient presenting with contractions as well as intermittent late decelerations Admission Diagnosis: 39-year-old 11 para 7-0-3-7 at 38 weeks and 3 days presenting with painful contractions, intermittent late decelerations with reduced variability, a history of very rapid labors. Planned procedure: Spontaneous vaginal delivery Other information: The patient is a 39-year-old 38-week female who presented to the hospital complaining of consistent contractions. Her contractions began occurring at home several hours prior to coming to the hospital and due to her history of extremely rapid labors and her distance of greater than 45 minutes from the hospital she elected to come to the hospital for further evaluation. During her time in the hospital her contractions were anywhere from 4 minutes apart to 10 minutes apart. During that time she had a period where her baby had reduced variability and late decelerations. The patient cervix was noted to be 4 cm dilated and 75% effaced. That was a change from her check in the office which was 3 cm dilated and 50% effaced. As a result the decision was made to proceed with augmentation of her labor as the risks of injury, as well as a risk of delivering outside the hospital were high enough that the benefits of augmenting labor now clearly outweigh the benefits of waiting 4 more days necessary to arrive at 39 weeks estimated gestational age. Her blood type is A-. Her antibody screen is negative. She passed her 3-hour glucose screen. She was GBS negative. She is rubella immune. The remainder of her infectious disease profile is within normal limits. Related Problem List Diagnoses 1. 38 weeks gestation of : 2. Advanced maternal age (AMA), 40 years or greater: 3. Uterine contractions: 4. Late deceleration of heart rate: 5. History of precipitous labor and delivery: 6. Multigravida of advanced maternal age in third trimester: A&P Assessment and plan 1. 38 weeks gestation of : The decision was made to augment the patient's labor for multiple reasons. 1. The patient made cervical change since she was seen my office. She is also dilated to 4 cm. In the face of a history of going from labor to delivery and 15 minutes, at 4 cm dilated, likelihood of her having rapid labor is very high. 2. While monitoring the 's heart rate, there were a series of late decelerations and low variability. While the heart rate improved after that, the fact that the baby did demonstrate a period of probable distress would suggest that sending the patient home would be ill-advised 3. Due to the mother's advanced maternal age, the risk of complications is increased, and the benefits versus risks of waiting longer in a with advanced maternal age would suggest that we should err on the side of delivering earlier rather than later. 4. The patient lives 45 minutes away from the hospital which exacerbates all of the concerns already mentioned. If she would go home while having contractions at 4 cm dilated, when her contractions finally shift to more painful and significant contractions that would be the indication that she should come back to the hospital, her risk of having a delivery at home or and route would be significant. After discussing options with the patient, we jointly decided to proceed with AROM. She and her had no further questions. Status: Acute 2. Advanced maternal age (AMA), 40 years or greater: Status: Acute 3. Uterine contractions: Status: Acute 4. Late deceleration of heart rate: Status: Acute 5. History of precipitous labor and delivery: Status: Acute 6. Multigravida of advanced maternal age in third trimester: Status: Acute PDMP PDMP Reviewed: Not Reviewed
[2025-08-06] MEDS: fentaNYL 50 mcg/mL INJ 2mL IVP ×2 (11:15→12:42)
[2025-08-06] MEDS: oxytocin 30 UNIT/500 ML BAG 600 UNIT IV (13:38)
--- NOTE | 2025-08-06 13:45 | P.PCNOB_ITS ---
Delivery Note: Date of delivery: August 06, 2025 Pre-delivery diagnoses: 39-year-old multigravida female at 38 we eks estimated gestational age in active labor Post-delivery diagnoses: Status post spontaneous vaginal delivery Procedure: Spontaneous vaginal delivery Delivering Physician: Sonu Nagel Estimated blood loss (mL): 50 Pre-Delivery Course: The patient presented to the hospital having contractions and having made cervical change since her hospital visit several days prior. During the time monitoring her, the patient was noted to have some late decelerations and times minimal variability. As result the decision was made to induce the patient. An amniotomy was performed. The patient then gradually progressed to complete without difficulty. Delivery: DELIVERY: The patient progressed to complete without difficulty. She delivered a female with a weight of 6 pounds 14 ounces with Apgars of 9, 9. The baby was delivered from the BRADLY position and placed on the mother's abdomen. The cord was then clamped and cut. There was no nuchal cord. There was no meconium. The placenta and 3 vessel cord were delivered intact shortly thereafter. The perineum and vaginal vault were carefully examined. No lacerations were noted. Both the mother and the baby were in stable condition. Post-Delivery Status: Good History History History 11 Term 8 0 Miscarriages/Ectopic 3 Living Children 8 A&P Assessment and plan 1. Spontaneous vaginal delivery: I anticipate routine care. 2. Advanced maternal age (AMA), 40 years or greater: 3. 38 weeks gestation of : PDMP PDMP Reviewed: Not Reviewed Coding Level of Care Code Acute Code for Chg Fwd Diagnoses Spontaneous vaginal delivery O80 Advanced maternal age (AMA), 40 years or greater 38 weeks gestation of Z3A.38
[2025-08-06] MEDS: benzocaine-menthol 78 gm Canister 1 SPRAY TOPICAL (15:10)
[2025-08-07 04:44] VITALS: BP 113/69; PULSE 78; RESP 16; TEMP 36.9; O2SAT 96
[2025-08-07 04:53] LABS: Hematocrit 26.3 % (36-47); Hemoglobin 7.90 g/dL (11.27-16.99); Mean Corpuscular HGB Conc 30.0 g/dL (30-55); Mean Corpuscular Hemoglobin 24.9 pg (27-33); Mean Corpuscular Volume 83.0 fl (85-98); Platelet Count 251 10^3/cmm (157-399); Red Blood Count 3.17 10^6/uL (3.85-5.65); White Blood Count 12.18 10^3/uL (3.29-11.43)
--- NOTE | 2025-08-07 08:28 | PM.OBGYDC ---
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 Spontaneous vaginal delivery: 2. Advanced maternal age (AMA), 40 years or greater: 3. 38 weeks gestation of : Reason for Visit Reason for Visit: ctx Hospital Course Hospital Course The patient arrived to the hospital in active labor. An amniotomy was performed. She progressed to complete and had an unremarkable delivery of a healthy appearing female infant. Her course was unremarkable. Her bleeding was within normal limits. She breast-fed well. Her pain was well-controlled. There were no concerns. Information Peripartum Data: Infant Delivery Method: Vaginal Physical Exam Narrative: The patient is alert. She appears comfortable. Her heart has a regular rate and rhythm with no murmurs appreciated. Lungs are clear to auscultation bilaterally. Her fundus is firm and below the umbilicus. History History History 11 Term 8 0 Miscarriages/Ectopic 3 Living Children 8 Discharge Data Studies Completed and Pending Pending at discharge Category Date Time Status Antibody Identification Stat Lab 08/06/25 03:50 Results Complete Crossmatch Stat Lab 08/06/25 03:50 Results Rho D Immune Globulin Stat Lab 08/06/25 03:50 Results Type and Screen Stat Lab 08/06/25 03:50 Results Laboratory Results WBC 12.18 10^3/uL (3.29-11.43) H 08/07/25 04:43 RBC 3.17 10^6/uL (3.85-5.65) L 08/07/25 04:43 Hgb 7.90 g/dL (11.27-16.99) L 08/07/25 04:43 Hct 26.3 % (36-47) L 08/07/25 04:43 MCV 83.0 fl (85-98) L 08/07/25 04:43 MCH 24.9 pg (27-33) L 08/07/25 04:43 MCHC 30.0 g/dL (30-55) 08/07/25 04:43 RDW 17.5 % (12.1-15.1) H 08/07/25 04:43 Plt Count 251 10^3/cmm (157-399) 08/07/25 04:43 MPV 10.3 fL (7.4-10.4) 08/07/25 04:43 Neut % (Auto) 73.3 % 08/06/25 03:50 Lymph % (Auto) 18.7 % 08/06/25 03:50 [place] % (Auto) 5.9 % 08/06/25 03:50 Eos % (Auto) 0.6 % 08/06/25 03:50 Baso % (Auto) 0.4 % 08/06/25 03:50 Neut # (Auto) 8.10 10^3/uL (1.8-7.7) H 08/06/25 03:50 Lymph # (Auto) 2.1 10^3/uL (0.8-4.8) 08/06/25 03:50 [place] # (Auto) 0.7 10^3/uL (0.2-0.9) 08/06/25 03:50 Eos # (Auto) 0.1 10^3/uL (0.0-0.8) 08/06/25 03:50 Baso # (Auto) 0.0 10^3/uL (0.0-0.1) 08/06/25 03:50 Nucleated RBC % (auto) 0 % 08/06/25 03:50 Nucleated RBCs # 0.0 /100WBC 08/06/25 03:50 Blood Type A Negative 08/06/25 03:50 Rho(D) Type Rh negative 08/06/25 03:50 Antibody Screen Positive 08/06/25 03:50 Antibody Identification Anti-D 08/06/25 03:50 Screen Negative (Negative) 08/07/25 04:43 Vitals Last Vital Signs Temp 98.5 F 08/07/25 04:44 Pulse 78 08/07/25 04:44 Resp 16 08/07/25 04:44 BP 113/69 08/07/25 04:44 Pulse Ox 96 08/07/25 04:44 O2 Del Method Room Air 08/07/25 04:44 Results Labs OB ([facility] Blood Type A Negative 08/06/25 Antibody Screen Positive 08/06/25 Hct, (36-47) 26.3 % L Today Hgb, (11.27-16.99) 7.90 g/dL L Today Rho(D) Type Rh negative 08/06/25 Plt Count, (157-399) 251 10^3/cmm Today Discharge Plan Discharge Patient Disposition: Home Condition: Stable Prescriptions: New ibuprofen 800 mg Tablet 800 mg PO TID Qty: 45 0RF Continued prenat.vits,merritt,vln-fqwn-svypa 1 tab PO DAILY Discharge Order = DC NOW: Discharge Order (Routine); Ordered 08/07/25 Ordered By: Sonu Nagel Referrals: Sonu Nagel MD [Primary Care Provider, [facility]] Discharge Diet: Usual diet Discharge Activity: Limit activity as instructed Patient Instructions: Depression (DC), Opioid Safety (DC), Preeclampsia and Eclampsia After Delivery (GEN), Hemorrhage (DC), OB Discharge Report, OB Food/Drug Interaction Guide, OB Care at Home, Opioid Safety, OB Vaginal Deliveries, Patient Portal & Som Instructions, Abnormal Bleeding Discharge Attestations H[employer] ROLL LAMINATOR Time Spent in Discharge Care*: less than 30 min Coding Level of Care Code Acute Code for Chg Fwd Diagnoses Spontaneous vaginal delivery O80 Advanced maternal age (AMA), 40 years or greater 38 weeks gestation of Z3A.38
[2025-08-07 10:29] VITALS: BP 106/69; PULSE 96; RESP 18; TEMP 36.8; O2SAT 96
[2025-08-07 12:07] VITALS: BP 106/69; PULSE 96; RESP 20; TEMP 36.8; O2SAT 96
[2025-08-07 14:00] VITALS: BP 111/69; PULSE 91; RESP 16; TEMP 36.7; O2SAT 97
== END 2025-08-07 14:30 | disposition home or self-care (01) | DRG 807 ==
LOC: OPOB 07:34 → OBGYN 07:34
PROVIDERS: Admitting Provider Family Medicine; PCP Family Medicine; Visit Provider Family Medicine
DX: O76 Abnormality in fetal heart rate and rhythm complicating labor and delivery (principal); Z37.0 Single live birth; Z3A.38 38 weeks gestation of pregnancy; O09.523 Supervision of elderly multigravida, third trimester
CPT/HCPCS: 36415; 36430; 59025; 59409; 80503; 85025; 85027; 85460; 86850; 86870; 86900; 90384; 96372; 96374; 96376; 99211; J2590; J3010; J9999